=== PATIENT | female | born 1985 | race Two or more races ===

== ENCOUNTER 2019-01-14 08:54 | Outpatient (CLI) | payer OTHER | END 2019-01-14 10:02 | disposition home or self-care (01) | LOC: NST 08:54 | DX: Z34.83 Encounter for supervision of other normal pregnancy, third trimester (principal) ==

== ENCOUNTER 2019-01-17 09:18 | Outpatient (CLI) | payer OTHER ==
[2019-01-17] MEDS ORDERED: INTEGRA PLUS C1 EACH PO (13:19)
[2019-01-17] MEDS ORDERED: PNEU16DI2 (13:20)
[2019-01-17] MEDS ORDERED: PRENATAL TABLE1 EAC1 PO (13:20)
== END 2019-01-17 09:54 | disposition home or self-care (01) ==
LOC: NST 09:18
DX: Z34.83 Encounter for supervision of other normal pregnancy, third trimester (principal)

== ENCOUNTER 2019-01-17 11:31 | Inpatient (IN) | payer OTHER ==
[~2019-01-17] VITALS: Ht 172.7 cm; Wt 76.2 kg
[2019-01-17] MEDS ORDERED: INTEGRA PLUS C1 EACH PO (13:19)
[2019-01-17] MEDS ORDERED: PRENATAL TABLE1 EAC1 PO (13:20)
[2019-01-17] MEDS ORDERED: PNEU16DI2 (13:20)
== END 2019-01-19 12:30 | disposition home or self-care (01) | DRG 807 ==
LOC: OB/GYN → LDR 11:31 → OB/GYN 01-18 08:12
PROVIDERS: ADMIT Obstetrics & Gynecology
PROC: 10E0XZZ Delivery of Products of Conception, External Approach (ICD-10-PCS; principal; 2019-01-17)
PROC: 0UQGXZZ Repair Vagina, External Approach (ICD-10-PCS; 2019-01-17)
PROC: 3E033VJ Introduction of Other Hormone into Peripheral Vein, Percutaneous Approach (ICD-10-PCS; 2019-01-17)
PROC: 10907ZC Drainage of Amniotic Fluid, Therapeutic from Products of Conception, Via Natural or Artificial Opening (ICD-10-PCS; 2019-01-17)
PROC: 4A1HXCZ Monitoring of Products of Conception, Cardiac Rate, External Approach (ICD-10-PCS; 2019-01-17)
DX: O71.4 Obstetric high vaginal laceration alone (principal); Z37.0 Single live birth; Z3A.39 39 weeks gestation of pregnancy

== ENCOUNTER 2021-03-08 11:24 | Outpatient (CLI) | payer OTHER ==
[~2021-03-08 11:24] MED LIST: INTEGRA PLUS C1 EACH PO; PNEU16DI2; PRENATAL TABLE1 EAC1 PO
== END 2021-03-08 12:15 | disposition home or self-care (01) ==
LOC: SONOGRAMA 11:24
PROVIDERS: ATTEND Obstetrics & Gynecology Maternal & Fetal Medicine
DX: N90.89 Other specified noninflammatory disorders of vulva and perineum (principal)

== ENCOUNTER 2021-04-15 12:30 | Inpatient (IN) | payer OTHER ==
[~2021-04-15] VITALS: Ht 172.7 cm; Wt 69.9 kg
== END 2021-04-19 10:38 | disposition home or self-care (01) | DRG 807 ==
LOC: SURG-SUITE 04-17 09:48 → LDR 04-17 09:48 → OB/GYN 04-17 13:36 → LDR 04-17 14:26 → SURG-SUITE 04-17 16:10 → SURH 04-23 12:30
PROVIDERS: ADMIT Obstetrics & Gynecology; ATTEND Obstetrics & Gynecology
PROC: 10E0XZZ Delivery of Products of Conception, External Approach (ICD-10-PCS; principal; 2021-04-17)
PROC: 0UQG7ZZ Repair Vagina, Via Natural or Artificial Opening (ICD-10-PCS; 2021-04-17)
PROC: 4A1HXFZ Monitoring of Products of Conception, Cardiac Rhythm, External Approach (ICD-10-PCS; 2021-04-17)
DX: O71.4 Obstetric high vaginal laceration alone (principal); Z37.0 Single live birth; Z3A.39 39 weeks gestation of pregnancy

== ENCOUNTER 2021-04-17 04:30 | Outpatient (CLI) | payer OTHER | END 2021-04-17 09:49 | disposition still patient (30) | LOC: OBS/DEL 04:30 | PROVIDERS: ATTEND Obstetrics & Gynecology | DX: O47.1 False labor at or after 37 completed weeks of gestation (principal); Z3A.39 39 weeks gestation of pregnancy ==